=== PATIENT | female | born 1955 | race Caucasian/White ===

== ENCOUNTER 2018-04-08 11:34 | Emergency (ER) | payer MEDICARE, MEDICAID, SELFPAY ==
[2018-04-08 11:36] VITALS: BP 130/98; PULSE 81; RESP 13; TEMP 37.4; O2SAT 98; BMI 31.3
--- NOTE | 2018-04-08 11:46 | RAD_ITS ---
STUDY: X-RAY CHEST REASON FOR EXAM: Female, 62 years old. Syncope, weakness. TECHNIQUE: Single AP portable upright view of the chest. COMPARISON: None. FINDINGS: There is mild elevation of the right diaphragm, etiology uncertain. Borderline increased density in the medial right lung base is likely subsegmental volume loss. There is no demonstrated pleural abnormality. Normal size heart. Normal mediastinum and carlo. Normal visualized pulmonary arteries. Normal visualized aortic arch and descending thoracic aorta. Normal visualized thoracic spine. Normal visualized ribs, clavicles, and shoulders. There is no demonstrated abnormality of the visualized soft tissue structures of the upper abdomen. RAD/Chest 1 View (Portable) IMPRESSION: Subsegmental volume loss in the medial right lung base with elevation of the right diaphragm. Electronically Signed: Pilo Kohli MD at 12:08 EDT , Service support ,
--- NOTE | 2018-04-08 11:47 | EKG12_ITS ---
Test Reason : SYNCOPE Blood Pressure : / mmHG Vent. Rate : 083 BPM Atrial Rate : 083 BPM P-R Int : 128 ms QRS Dur : 088 ms QT Int : 398 ms P-R-T Axes : -19 000 136 degrees QTc Int : 467 ms Normal sinus rhythm ST & T wave abnormality, consider anterolateral ischemia Abnormal ECG Confirmed by KALPESH SMITH, GOLD ([id number]), assignment editor JUAN PABLO SAUNDERS ([id number]) on 04/11/2018 10:33:32 AM Referred By: DAMASO Confirmed By:GOLD POSEY MD
--- NOTE | 2018-04-08 11:50 | ED.DCSUM_ITS ---
- ER Visit Summary Date of Service: 04/08/18 Chief Complaint: Syncope History of Present Illness: The patient is a 62 F who was coming out of the bathroom following urination status post Lasix when she started feeling warm and sweaty. She states her vision got tunneled and then dark and she passed out. A bystander at [facility] where she is currently staying reportedly did CPR. EMS notes patient appears well in transport. Patient is from [facility]. She was transferred here a couple days ago. Apparently the alf she was staying and down there would not take her back following her hospitalization due to issues such as stealing and causing problems. The patient states that her current living situation here in [place] simply will not do. She denies any chest pain or shortness of breath. She reports having had a heart catheterization in the past. Per reports it was September 2016. Physical Examination: Afebrile vital signs are stable Gen: Well-nourished well-developed Head: Normocephalic atraumatic Eyes: Perrl EOMI ENT: TMs clear no rhinorrhea moist mucous membranes Neck: Supple no lymphadenopathy no JVD nontender CVS: Regular rate rhythm no murmurs normal S1-S2 Respiratory: No distress clear to auscultation bilaterally chest nontender Abdomen: Soft nontender nondistended normal bowel sounds no masses Back: Nontender Extremity: Nontender no edema Skin: Normal color no rash Neuro: alert orientated ?3 CN II-XII intact normal strength sensation reflexes gait cerebellar Psych: Normal affect normal mood Test Results: EKG showed a normal sinus rhythm at a rate of 83. CBC CMP liver urinalysis troponin natruretic peptide all essentially negative. Chest x-ray no acute findings. Emergency Department Course and Treatment: Patient had no events on the monitor. She is otherwise at her baseline and feels fine. She will be discharged home follow-up with her new primary care physician. Impression: 1. Syncope This note was generated with [employer] dictation software. It may contain incorrect words, spelling, and punctuation that were not noted in review of the chart prior to signing ED Disposition - Plan for ED Patient: Disposition: Home or Assisted Living Chief Complaint: Syncope Instructions: ED Syncope Vasovagal Referrals: [facility] Doctor,Out of [Primary Care Provider] - Additional Instructions: Please follow-up with your primary care physician
--- NOTE | 2018-04-08 11:50 | ED.RN ---
NO OLD EKG'S IN MUSE
[2018-04-08 12:03] LABS: Absolute Lymphocyte Count 1.82 X10^3/ul (0.83-4.51); Absolute Neutrophil Count 2.5 X10^3/uL (2.0-7.7); Basophil# 0.01 X10^3/uL; Basophil% 0.2 % (0-1); Eosinophil# 0.04 X10^3/uL; Eosinophils% 0.8 % (0-5); Hematocrit 41.3 % (37-47); Hemoglobin 13.6 g/dl (12.0-15.0); Lymphocyte # 1.82 X10^3/ul (4.0); Lymphocyte % 38.2 % (19-41); Mean Corp Hgb Conc 32.9 g/gl (32-36); Mean Corpuscular Hgb 28.1 pg (27.0-32.0); Mean Corpuscular Volume 85.3 fL (81-99); Mean Platelet Vol. 8.7 fl (6.2-12.0); Monocyte# 0.35 X10^3/uL; Monocyte% 7.4 % (0-10); Neutrophil # 2.54 X10^3/uL (2.7-7.7); Neutrophil % 53.4 % (47-70); POSITIVE COUNT NO; POSITIVE DIFFERENTIAL NO; POSITIVE MORPHOLOGY NO; Platelet Count 271 K/mm3 (150-450); RBC Distribution Width CV 14.5 % (11.6-14.6); RBC Distribution Width SD 45.4 fl (35.1-43.9); Red Blood Count 4.84 M/mm3 (4.2-5.4); White Blood Count 4.8 K/mm3 (4.4-11.0)
--- NOTE | 2018-04-08 12:05 | ED.RN ---
Permission to treat received from Jose Tineo [phone] by myself and Sheila Diaz RN.
[2018-04-08 12:17] VITALS: BP 122/74; PULSE 88; RESP 13; O2SAT 98
[2018-04-08 12:20] LABS: Mucous, Urine 0 SEEN /hpf (<or=2+); Red Blood Cells-Urine 0 SEEN /hpf (0-5)
[2018-04-08 12:21] LABS: Color, Urine Yellow (Yellow); Glucose, Dipstick Normal (Normal); Ketone-Dipstick Negative (Negative); Leukocyte Esterase-Dipstick 25 /ul (Negative); Nitrite-Dipstick Negative (Negative); Occult Blood-Urine Negative /ul (Negative); Protein-Dipstick Negative (Negative); Urine Bilirubin Dipstick Negative (Negative); Urine Clarity Sl. Cloudy (Clear); Urine Urobilinogen Normal (Normal)
[2018-04-08 12:26] LABS: AST(SGOT) 18 U/L (15-37); Alanine Aminotransfer ALT/SGPT 35 U/L (13-56); Alkaline Phosphatase 174 U/L (45-117); Anion Gap 11 (5-15); BUN 20 mg/dL (7-18); BUN/Creat Ratio 17.2 RATIO (10-20); Calcium,Total 9.4 mg/dL (8.5-10.1); Chloride 104 mmol/L (98-107); Creatinine, Serum 1.16 mg/dL (0.55-1.02); EST Glomerular Filtration Rate 50 mL/min (>60); Est Glom Filt Rate - Afr Amer 60 mL/min (>60); Estimated Creatinine Clearance 50.74 ml/min; Globulin 4.2 g/dL (2.2-4.2); Glucose 118 mg/dL (74-106); Potassium 3.5 mmol/L (3.5-5.1); Protein, Total 8.2 g/dL (6.4-8.2); Sodium Level 142 mmol/L (136-145)
[2018-04-08 12:32] LABS: BNP,B-Type NATRIURETIC PEPTIDE 8.3 pg/mL (0-100)
[2018-04-08 12:33] LABS: Bacteria 1+ /hpf (None Seen); Squamous Epithelial Cells - UA 0-5 SEEN /hpf (5-10); White Blood Cells 0-5 SEEN /hpf (0-5)
[2018-04-08 13:41] VITALS: BP 141/101; PULSE 87
== END 2018-04-08 13:45 | disposition home or self-care (01) ==
PROVIDERS: Emergency Provider Emergency Medicine
DX: R55 Syncope and collapse (principal); I11.0 Hypertensive heart disease with heart failure; I50.20 Unspecified systolic (congestive) heart failure; Z79.899 Other long term (current) drug therapy
CPT/HCPCS: 71045; 80053; 81001; 83880; 84484; 85025; 93005; 99285; A4216

== ENCOUNTER 2018-08-10 10:31 | Emergency (ER) | payer MEDICARE, MEDICAID, SELFPAY ==
[2018-08-10 10:32] VITALS: BP 178/119; PULSE 74; RESP 15; TEMP 36.9; O2SAT 97; BMI 33.7
--- NOTE | 2018-08-10 11:08 | CT_ITS ---
STUDY: CT BRAIN WITHOUT CONTRAST REASON FOR EXAM: Female, 63 years old. Headache RADIATION DOSAGE (If Supplied By Facility): CTDIvol = ( 44.99 ) mGy, DLP = ( 694.87 ) mGycm TECHNIQUE: Transaxial CT imaging of the brain was performed without administration of intravenous contrast material. Individualized dose optimization techniques were used for this CT. COMPARISON: None. FINDINGS: Normal soft tissue structures. Normal calvarium. There is mild cerebral atrophy with widening of the extra-axial spaces and ventricular dilatation. There are areas of decreased attenuation within the white matter tracts of the supratentorial brain, consistent with microvascular disease changes. Normal basal ganglia and thalami. Normal brainstem. Normal cerebellum. There is no intracranial hemorrhage. There are no findings of an acute ischemic infarction. Normal visualized paranasal sinuses. CT/Brain/Head without Contrast IMPRESSION: Chronic involutional changes of the brain. Electronically Signed: Favian He DO at 13:03 EST Tel , Service support ,
[2018-08-10 11:43] LABS: Absolute Lymphocyte Count 1.59 X10^3/ul (0.83-4.51); Absolute Neutrophil Count 3.9 X10^3/uL (2.0-7.7); Basophil# 0.03 X10^3/uL; Basophil% 0.5 % (0-1); Eosinophil# 0.08 X10^3/uL; Eosinophils% 1.3 % (0-5); Hemoglobin 13.4 g/dl (12.0-15.0); Lymphocyte # 1.59 X10^3/ul (4.0); Lymphocyte % 26.6 % (19-41); Mean Corp Hgb Conc 34.4 g/gl (32-36); Mean Corpuscular Hgb 29.5 pg (27.0-32.0); Mean Corpuscular Volume 85.7 fL (81-99); Mean Platelet Vol. 10.5 fl (6.2-12.0); Monocyte# 0.34 X10^3/uL; Monocyte% 5.7 % (0-10); Neutrophil # 3.91 X10^3/uL (2.7-7.7); Neutrophil % 65.6 % (47-70); POSITIVE COUNT NO; POSITIVE DIFFERENTIAL NO; POSITIVE MORPHOLOGY NO; Platelet Count 152 K/mm3 (150-450); RBC Distribution Width SD 40.4 fl (35.1-43.9); Red Blood Count 4.55 M/mm3 (4.2-5.4)
[2018-08-10 11:46] LABS: AST(SGOT) 20 U/L (15-37); Alanine Aminotransfer ALT/SGPT 18 U/L (13-56); Albumin, Serum 3.8 g/dL (3.2-5.0); Alkaline Phosphatase 141 U/L (45-117); Anion Gap 8 (5-15); BUN 13 mg/dL (7-18); BUN/Creat Ratio 12.6 RATIO (10-20); Calcium,Total 8.7 mg/dL (8.5-10.1); Chloride 105 mmol/L (98-107); Creatinine, Serum 1.03 mg/dL (0.55-1.02); EST Glomerular Filtration Rate 57 mL/min (>60); Est Glom Filt Rate - Afr Amer 69 mL/min (>60); Estimated Creatinine Clearance 60.78 ml/min; Globulin 3.7 g/dL (2.2-4.2); Glucose 106 mg/dL (74-106); Lipase 118 U/L (73-393); Potassium 3.6 mmol/L (3.5-5.1); Protein, Total 7.5 g/dL (6.4-8.2); Sodium Level 139 mmol/L (136-145)
[2018-08-10] MEDS: Metoclopramide 10 MG/2 ML Vial IV (12:09)
[2018-08-10] MEDS: 0.9% Normal Saline 1,000 ML 1000 ML IV (12:09)
[2018-08-10] MEDS: DiphenhydrAMINE 50 MG/ML Syringe 25 MG IV (12:09)
[2018-08-10 12:10] LABS: Color, Urine Straw (Yellow); Glucose, Dipstick Normal (Normal); Ketone-Dipstick Negative (Negative); Leukocyte Esterase-Dipstick Negative /ul (Negative); Nitrite-Dipstick Negative (Negative); Occult Blood-Urine Negative /ul (Negative); Protein-Dipstick Negative (Negative); Urine Bilirubin Dipstick Negative (Negative); Urine Clarity Clear (Clear); Urine Urobilinogen Normal (Normal)
[2018-08-10 12:41] VITALS: PULSE 66; RESP 18; O2SAT 96
[2018-08-10 14:21] VITALS: BP 149/68; PULSE 134; RESP 17; O2SAT 96
--- NOTE | 2018-08-10 14:24 | ED.VISSUMM ---
- ER Visit Summary Date of Service: 08/10/18 Chief Complaint: Abdominal pain and headache History of Present Illness: The patient is a 63 F who presents with abdominal pain and headache that has been getting worse since yesterday. Patient describes her abdominal pain is cramping. Patient states pain is worse over the lower abdomen. Patient admits to some nausea but denies any vomiting. Patient admits to some diarrhea. Patient denies any urinary complaints. Patient also admits to some dizziness. Patient admits to fevers and chills but did not take her temperature. Physical Examination: Vital signs are stable. Patient is afebrile. Patient is in no acute distress. Oral mucosa is pink and moist. Neck is supple. Trachea is midline. There is no JVD noted. Heart was regular rate and rhythm. Lungs are clear and equal bilateral. Abdomen is soft. Bowel sounds are normal. There is mild diffuse tenderness. There is no rebound or guarding noted. Skin is warm dry. Cranial nerves II through XII are intact. There are no focal motor or sensory deficits noted. The remaining physical exam is within normal limits. Test Results: CT scan of the brain was obtained and was normal. CBC, comprehensive metabolic profile, lipase, and urinalysis were obtained and were all normal. Emergency Department Course and Treatment: Patient was given IV fluids, Reglan, Benadryl, and morphine. Patient was instructed to follow-up with her primary care physician in 5-7 days. Patient understood and was agreeable with the plan. All questions were answered. Disposition: Discharge home Impression: Abdominal pain uncertain etiology This note was generated with [employer] dictation software. It may contain incorrect words, spelling, and punctuation that were not noted in review of the chart prior to signing ED Disposition - Plan for ED Patient: Disposition: Home or Assisted Living Diagnosis: Abdominal pain in female Instructions: ED Abdominal Pain Unkn Cause Referrals: [facility] [address] Doctor,Out of [Primary Care Provider] -
--- NOTE | 2018-08-10 14:28 | ED.DCSUM_ITS ---
- ER Visit Summary Date of Service: 08/10/18 Chief Complaint: Abdominal pain and headache History of Present Illness: The patient is a 63 F who presents with abdominal pain and headache that has been getting worse since yesterday. Patient describes her abdominal pain is cramping. Patient states pain is worse over the lower abdomen. Patient admits to some nausea but denies any vomiting. Patient admits to some diarrhea. Patient denies any urinary complaints. Patient also admits to some dizziness. Patient admits to fevers and chills but did not take her temperature. Physical Examination: Vital signs are stable. Patient is afebrile. Patient is in no acute distress. Oral mucosa is pink and moist. Neck is supple. Trachea is midline. There is no JVD noted. Heart was regular rate and rhythm. Lungs are clear and equal bilateral. Abdomen is soft. Bowel sounds are normal. There is mild diffuse tenderness. There is no rebound or guarding noted. Skin is warm dry. Cranial nerves II through XII are intact. There are no focal motor or sensory deficits noted. The remaining physical exam is within normal limits. Test Results: CT scan of the brain was obtained and was normal. CBC, comprehensive metabolic profile, lipase, and urinalysis were obtained and were all normal. Emergency Department Course and Treatment: Patient was given IV fluids, Reglan, Benadryl, and morphine. Patient was instructed to follow-up with her primary care physician in 5-7 days. Patient understood and was agreeable with the plan. All questions were answered. Disposition: Discharge home Impression: Abdominal pain uncertain etiology This note was generated with [employer] dictation software. It may contain incorrect words, spelling, and punctuation that were not noted in review of the chart prior to signing ED Disposition - Plan for ED Patient: Disposition: Home or Assisted Living Diagnosis: Abdominal pain in female Instructions: ED Abdominal Pain Unkn Cause Referrals: [facility] Doctor,Out of [Primary Care Provider] -
[2018-08-10] MEDS: Morphine 2 MG/ML Syringe IV (14:44)
[2018-08-10] MEDS: Ondansetron 4 MG/2 ML Vial IV (14:53)
== END 2018-08-10 15:02 | disposition home or self-care (01) ==
PROVIDERS: Emergency Provider Emergency Medicine
DX: R10.32 Left lower quadrant pain (principal); R10.31 Right lower quadrant pain; R51 Headache; I10 Essential (primary) hypertension
CPT/HCPCS: 70450; 80053; 81002; 83690; 85025; 96361; 96374; 96375; 99285; A4216; J2405

== ENCOUNTER 2018-09-18 16:56 | Emergency (ER) | payer MEDICARE, MEDICAID, SELFPAY ==
[2018-09-18 16:58] VITALS: BP 115/83; PULSE 86; RESP 20; TEMP 36.7; O2SAT 96; BMI 32.2
[2018-09-18 17:18] VITALS: O2SAT 97
--- NOTE | 2018-09-18 17:19 | ED.VISSUMM ---
- ER Visit Summary Date of Service: 09/18/18 Chief Complaint: Cough History of Present Illness: The patient is a 63 F history of hypertension and high cholesterol. Patient states that she has had a 2-day history of cough. With a runny nose that is clear. No hemoptysis. No shortness of breath. No vomiting or diarrhea. No fever. Physical Examination: All signs are stable afebrile. Pulse ox 96% on room air. No hypoxia. H EENT exam unremarkable. Moist weeks membranes. TMs unremarkable. Some wax left canal. Neck nontender no lymphadenopathy. Lungs dry cough. No rales, rhonchi or wheezing. Equal symmetrical. Heart regular rate and rhythm rate about 85 no murmur. Chest wall nontender. Abdomen soft nontender. Normal bowel sounds no peritoneal signs. Patient moving all 4 extremities. Neurovascular intact. Calves nontender without edema or cords. Neurologically she is awake alert with no focal motor deficits. Back exam nontender. Skin unremarkable. Test Results: Chest x-ray 2 views shows no acute abnormality. Read by myself. Normal cardiac silhouette. No infiltrate. Emergency Department Course and Treatment: Repeat exam doing well at 1737. Discharged home. She and I discussed her chest x-ray results. Treatment Plan: Plenty of fluids and rest. Follow-up if not improving with her primary care physician at this time she does not need an antibiotic. Disposition: Discharge Impression: Viral bronchitis This note was generated with [employer] dictation software. It may contain incorrect words, spelling, and punctuation that were not noted in review of the chart prior to signing ED Disposition - Plan for ED Patient: Referrals: Sarabjit Troncoso MD [Primary Care Provider] -
--- NOTE | 2018-09-18 17:22 | ED.DCSUM_ITS ---
- ER Visit Summary Date of Service: 09/18/18 Chief Complaint: Cough History of Present Illness: The patient is a 63 F history of hypertension and high cholesterol. Patient states that she has had a 2-day history of cough. With a runny nose that is clear. No hemoptysis. No shortness of breath. No vomiting or diarrhea. No fever. Physical Examination: All signs are stable afebrile. Pulse ox 96% on room air. No hypoxia. H EENT exam unremarkable. Moist weeks membranes. TMs un remarkable. Some wax left canal. Neck nontender no lymphadenopathy. Lungs dry cough. No rales, rhonchi or wheezing. Equal symmetrical. Heart regular rate and rhythm rate about 85 no murmur. Chest wall nontender. Abdomen soft nontender. Normal bowel sounds no peritoneal signs. Patient moving all 4 extremities. Neurovascular intact. Calves nontender without edema or cords. Neurologically she is awake alert with no focal motor deficits. Back exam nontender. Skin unremarkable. Test Results: Chest x-ray 2 views shows no acute abnormality. Read by myself. Normal cardiac silhouette. No infiltrate. Emergency Department Course and Treatment: Repeat exam doing well at 1737. Discharged home. She and I discussed her chest x-ray results. Treatment Plan: Plenty of fluids and rest. Follow-up if not improving with her primary care physician at this time she does not need an antibiotic. Disposition: Discharge Impression: Viral bronchitis This note was generated with [employer] dictation software. It may contain incorrect words, spelling, and punctuation that were not noted in review of the chart prior to signing ED Disposition - Plan for ED Patient: Referrals: Sarabjit Troncoso MD [Primary Care Provider] -
--- NOTE | 2018-09-18 17:25 | RAD_ITS ---
STUDY: X-RAY CHEST REASON FOR EXAM: Female, 63 years old. Cough TECHNIQUE: PA and lateral chest COMPARISON: 04/08/2018 FINDINGS: There are COPD changes. There is a new 7 mm nodular density overlying the left anterior second rib.. Normal size heart. Normal mediastinum and carlo. Normal visualized pulmonary arteries. Normal visualized aortic arch and descending thoracic aorta. Normal visualized thoracic spine. Normal visualized ribs, clavicles, and shoulders. There is no demonstrated abnormality of the visualized soft tissue structures of the upper abdomen. RAD/Chest PA and Lateral IMPRESSION: COPD changes New 7 mm left upper lobe faint nodular density which could represent a new pulmonary nodule, this could represent summation artifact or scar. Rib lesion also cannot be excluded. CT chest follow-up is recommended. Electronically Signed: Clement Garcia, at 18:44 EDT Tel , Service support ,
--- NOTE | 2018-09-18 17:39 | ED.DEP ---
ED Disposition - Plan for ED Patient: Disposition: Home or Assisted Living Instructions: ED Upper Resp Infec No Abx Tx Referrals: Sarabjit Troncoso MD [Primary Care Provider] - 1 Week if not improving Additional Instructions: You have a viral respiratory infection. Currently no antibiotics. This should progressively get better if not in a week follow-up with your doctor.
== END 2018-09-18 17:54 | disposition home or self-care (01) ==
PROVIDERS: Emergency Provider Emergency Medicine; Family Provider Family Medicine; PCP Family Medicine
DX: J20.8 Acute bronchitis due to other specified organisms (principal); I10 Essential (primary) hypertension; E78.00 Pure hypercholesterolemia, unspecified; Z79.899 Other long term (current) drug therapy
CPT/HCPCS: 71046; 99282

== ENCOUNTER 2019-01-10 04:12 | Emergency (ER) | payer MEDICARE, MEDICAID, SELFPAY ==
[2019-01-10 04:14] VITALS: BP 191/118; PULSE 95; RESP 18; TEMP 37.6; O2SAT 98; BMI 31.1
--- NOTE | 2019-01-10 04:28 | RAD_ITS ---
STUDY: X-RAY CHEST REASON FOR EXAM: Female, 63 years old. Cough TECHNIQUE: Frontal and lateral views of the chest. COMPARISON: None. FINDINGS: There is subsegmental atelectasis in the left lung base. There is no demonstrated pleural abnormality. Normal size heart. Normal mediastinum and carlo. Normal visualized pulmonary arteries. Normal visualized aortic arch and descending thoracic aorta. Normal visualized thoracic spine. There is degenerative osteoarthritis of the bilateral shoulders. There is no demonstrated abnormality of the visualized soft tissue structures of the upper abdomen. RAD/Chest PA and Lateral IMPRESSION: Degenerative changes, as described above. No demonstrated acute cardiopulmonary process. Electronically Signed: Charo Shen, at 5:58 EDT Tel , Service support ,
--- NOTE | 2019-01-10 04:28 | EKG12_ITS ---
Test Reason : WEAKNESS Blood Pressure : / mmHG Vent. Rate : 096 BPM Atrial Rate : 096 BPM P-R Int : 130 ms QRS Dur : 094 ms QT Int : 392 ms P-R-T Axes : 074 -03 115 degrees QTc Int : 495 ms Normal sinus rhythm ST & T wave abnormality, consider inferior ischemia ST & T wave abnormality, consider anterolateral ischemia Prolonged QT Abnormal ECG Confirmed by CAN SMITH, EDUARDO ([id number]), film or videotape editor SHABBIR NGUYEN ([id number]) on 01/13/2019 12:37:05 PM Referred By: RAMÍREZ Confirmed By:EDUARDO NORTH MD
--- NOTE | 2019-01-10 04:28 | CT_ITS ---
STUDY: CT BRAIN WITHOUT CONTRAST REASON FOR EXAM: Female, 63 years old. NAUSEA, WEAKNESS X 3 DAYS, RADIATION DOSAGE (If Supplied By Facility): CTDIvol = ( 44.99 ) mGy, DLP = ( 745.49 ) mGycm TECHNIQUE: Transaxial CT imaging of the brain was performed without administration of intravenous contrast material. Individualized dose optimization techniques were used for this CT. COMPARISON: No relevant priors. FINDINGS: Normal soft tissue structures. Normal calvarium. Normal size ventricles and extra-axial spaces for the patient's age. There are areas of decreased attenuation within the white matter tracts of the supratentorial brain, consistent with microvascular disease changes. Normal basal ganglia and thalami. Normal brainstem. Normal cerebellum. There is no intracranial hemorrhage. There are no findings of an acute ischemic infarction. Normal visualized paranasal sinuses. CT/Brain/Head without Contrast IMPRESSION: Chronic involutional changes of the brain. Electronically Signed: Charo Shen, at 6:02 EDT Tel , Service support ,
--- NOTE | 2019-01-10 04:29 | CT_ITS ---
STUDY: CT ABDOMEN AND PELVIS WITHOUT CONTRAST REASON FOR EXAM: Female, 63 years old. Nausea RADIATION DOSAGE (If Supplied By Facility): CTDIvol = ( 6.72 ) mGy, DLP = ( 313.81 ) mGycm TECHNIQUE: Transaxial images were obtained from the dome of the diaphragm to the symphysis pubis without oral contrast, and without intravenous contrast. Sagittal and coronal images were reconstructed. Individualized dose optimization techniques were used for this CT. COMPARISON: None. FINDINGS: The visualized lung bases are unremarkable. The visualized portions of the heart are within normal limits. Normal liver. Normal gallbladder and extrahepatic biliary system. Normal spleen. Normal pancreas. Normal bilateral adrenal glands. Normal right kidney. Normal left kidney. Normal visualized stomach. Normal small intestine. Normal colon. There is non-visualization of the appendix. Normal abdominal aorta. Normal inferior vena cava. Normal retroperitoneum. Normal urinary bladder. Normal abdominal wall. There are diffuse degenerative changes of the visualized lumbar spine more prominent at L3-4. CT/Abdomen/Pelvis without Cont IMPRESSION: No acute abnormality of the abdomen and pelvis. Electronically Signed: Charo Shen, at 6:19 EDT Tel , Service support ,
--- NOTE | 2019-01-10 04:30 | ED.VISSUMM ---
- ER Visit Summary Date of Service: 01/10/19 Chief Complaint: Multiple complaints History of Present Illness: The patient is a 63 F who presents with multiple complaints. She has not felt well for 3 days. She complains of nausea vomiting diarrhea and right flank pain. She also complains of headache and feeling dizzy and lightheaded. She denies chest pain or shortness of breath. No fevers. No cough. He is unable to really characterize the flank pain. She states it just hurts. She rates this is 8 out of 10. She reports about 4 episodes of nonbloody nonbilious emesis over the last 3 days as well as mild diarrhea. Physical Examination: Blood pressure 191/118 temperature 99.6 vitals otherwise normal No distress resting comfortably Moist mucous membranes Heart regular rate and rhythm Lungs are clear Abdomen soft she has no anterior abdominal tenderness she does have tenderness of the right flank there is no guarding there is no rebound surgical scars are noted on the abdomen Alert No focal or lateralizing neurological deficits normal strength normal sensation Normal affect Test Results: EKG shows normal sinus rhythm at a rate of 96 with lateral T wave inversions, unchanged from prior. Chest x-ray shows no acute process. CT of the abdomen and pelvis shows no acute abnormality. CT of the head shows chronic changes only. Labs are notable for potassium of 2.7. BUN normal. Urinalysis is contaminated but suggestive of possible infection with 500 leukocyte esterase and 10-25 WBCs. This was sent for culture. Troponin is negative. Magnesium is normal. Emergency Department Course and Treatment: Patient was treated with morphine and Zofran for her pain. She is resting comfortably on reevaluation. She was given IV Rocephin for UTI. Her potassium was replaced orally and IV. At this time her symptoms are well controlled. She is tolerating p.o. and was drinking Sprite on my reevaluation. Her blood pressure has significantly improved without any treatment. At this point regarding her UTI she does not meet sirs criteria, she does not appear septic. I believe she will be treated as an outpatient. In regards to her hypokalemia she is only had a few episodes of diarrhea this is not severe ongoing. She has not had any while here. She is tolerating p.o. and has no EKG changes. Once this is replaced I believe she can be discharged. Patient is in agreement with this plan. Patient will be signed out the oncoming physician to follow-up on the repeat potassium after replacement. Treatment Plan: [] Disposition: Discharge pending potassium replacement Impression: UTI Hypokalemia Uncontrolled hypertension This note was generated with [employer] dictation software. It may contain incorrect words, spelling, and punctuation that were not noted in review of the chart prior to signing ED Disposition - Plan for ED Patient: Referrals: Sarabjit Troncoso MD [Primary Care Provider] -
[2019-01-10 04:35] LABS: Absolute Lymphocyte Count 0.78 X10^3/uL (0.83-4.51); Absolute Neutrophil Count 7.8 X10^3/uL (2.0-7.7); Basophil# 0.03 X10^3/uL; Basophil% 0.3 % (0-1); Eosinophil# 0.05 X10^3/uL; Eosinophils% 0.5 % (0-5); Hematocrit 39.7 % (37-47); Hemoglobin 14.6 g/dL (12.0-15.0); Lymphocyte # 0.78 X10^3/ul (4.0); Lymphocyte % 8.5 % (19-41); Mean Corp Hgb Conc 36.8 g/dL (32-36); Mean Corpuscular Hgb 31.3 pg (27.0-32.0); Mean Corpuscular Volume 85.2 fL (81-99); Mean Platelet Vol. 9.4 fl (6.2-12.0); Monocyte# 0.53 X10^3/uL; Monocyte% 5.8 % (0-10); NRBC Flagged by Analyzer 0 % (0-5); Neutrophil # 7.77 X10^3/uL (2.7-7.7); Neutrophil % 84.5 % (47-70); Platelet Count 195 K/mm3 (150-450); RBC Distribution Width CV 12.3 % (11.6-14.6); Red Blood Count 4.66 M/mm3 (4.2-5.4); White Blood Count 9.2 K/mm3 (4.4-11.0)
[2019-01-10] MEDS: Ondansetron 4 MG/2 ML Vial IV (04:35)
[2019-01-10] MEDS: Morphine 4 MG/ML Syringe IV (04:35)
[2019-01-10 04:42] LABS: Bacteria 0 SEEN /hpf (None Seen); Mucous, Urine 0 SEEN /hpf (<or=2+)
[2019-01-10 05:05] LABS: Color, Urine Yellow (Yellow); Glucose, Dipstick Normal (Normal); Ketone-Dipstick 5 mg/dl (Negative); Leukocyte Esterase-Dipstick 500 /ul (Negative); Nitrite-Dipstick Negative (Negative); Occult Blood-Urine 10 /ul (Negative); Protein-Dipstick 15 mg/dl (Negative); Specific Gravity, Urine 1.015 (1.002-1.030); Urine Clarity Clear (Clear); Urine Urobilinogen 4 mg/dl (Normal); Urine pH 6.5 (5.0 - 8.0)
[2019-01-10 05:07] LABS: Urine Bilirubin Dipstick 1 mg/dL (Negative)
[2019-01-10 05:14] LABS: Red Blood Cells-Urine 0-5 SEEN /hpf (0-5); Squamous Epithelial Cells - UA 25-50 SEEN /hpf (5-10); White Blood Cells 10-25 SEEN /hpf (0-5)
[2019-01-10 05:15] LABS: Transitional Epithelial - Ur 0-5 SEEN /hpf (0-5)
[2019-01-10 05:20] LABS: ALB/GLOB Ratio 1.2 RATIO (0.9-2.4); AST(SGOT) 13 U/L (15-37); Alanine Aminotransfer ALT/SGPT 18 U/L (13-56); Albumin, Serum 4.1 g/dL (3.2-5.0); Alkaline Phosphatase 127 U/L (45-117); Anion Gap 9 (5-15); BUN 12 mg/dL (7-18); BUN/Creat Ratio 11.1 RATIO (10-20); Calcium,Total 9.4 mg/dL (8.5-10.1); Chloride 105 mmol/L (98-107); Creatinine, Serum 1.08 mg/dL (0.55-1.02); EST Glomerular Filtration Rate 54 mL/min (>60); Est Glom Filt Rate - Afr Amer 65 mL/min (>60); Estimated Creatinine Clearance 53.62 ml/min; Globulin 3.5 g/dL (2.2-4.2); Glucose 132 mg/dL (74-106); Lipase 148 U/L (73-393); Potassium 2.7 mmol/L (3.5-5.1); Protein, Total 7.6 g/dL (6.4-8.2); Sodium Level 143 mmol/L (136-145)
--- NOTE | 2019-01-10 05:25 | ED.RN ---
lab called with critical lab results. potassium level 2.7. Dr. Miranda made aware no new orders at this time
[2019-01-10] MEDS: Ceftriaxone 1 GM/50 ML BAG IV (05:54)
[2019-01-10 05:59] LABS: Magnesium 2.2 mg/dL (1.6-2.6)
[2019-01-10 06:13] VITALS: BP 150/94; PULSE 88; RESP 14; O2SAT 96
[2019-01-10] MEDS: Potassium Chloride 10mEq/100mL 10 MEQ/100 ML IV.SOLN. 100 MEQ IV BOLUS ×2 (06:26→08:16)
--- NOTE | 2019-01-10 06:26 | ED.DEP ---
ED Disposition - Plan for ED Patient: Instructions: Hypokalemia, HYPERTENSION, Established, Out of Control, Understanding Urinary Tract Infections (UTIs) Prescriptions: Cephalexin [Keflex] 500 mg PO Q12 #14 cap Prescription Printed Referrals: Sarabjit Troncoso MD [Primary Care Provider] -
--- NOTE | 2019-01-10 07:21 | ED.DEP ---
ED Disposition - Plan for ED Patient: Instructions: Understanding Urinary Tract Infections (UTIs), Hypokalemia, HYPERTENSION, Established, Out of Control Prescriptions: Cephalexin [Keflex] 500 mg PO Q12 #14 cap Prescription Printed Ondansetron [Zofran Odt] 4 mg PO Q8H PRN PRN #7 tab PRN Reason: as needed for nausea Prescription Printed Referrals: Sarabjit Troncoso MD [Primary Care Provider] -
[2019-01-10 08:00] VITALS: BP 157/105; PULSE 87; RESP 14; O2SAT 98
[2019-01-10] MEDS: Acetaminophen 500 MG Tablet 1000 MG PO (08:21)
[2019-01-10 10:26] VITALS: BP 147/86; PULSE 90; RESP 13; O2SAT 96
--- NOTE | 2019-01-10 10:31 | ED.RN ---
THIS RN IN TO ASSESS IV INFUSION STATUS, IV PUMP TURNED OFF. ALL OTHER ED STAFF DENY SHUTTING DOWN PUMP. PT STATES SHE THINKS SOME WAVY HAIRED LADY DID IT. PT HAD VOICED RELUCTANCE TO RETURN TO [place], REQUESTED TO STAY FOR LUNCH. EDUCATED PT ON DANGERS OF HER HANDING IV PUMP. ENGLE PAD ON PUMP LOCKED.
[2019-01-10 12:14] VITALS: BP 147/87; PULSE 78; RESP 18; O2SAT 97
--- NOTE | 2019-01-10 12:22 | ED.RN ---
REPEAT POTASSIUM HELD PER MD, 2 BAGS OF POTASSIUM GIVEN PER MD.
--- NOTE | 2019-01-10 13:33 | CASEMGMT ---
Social Work Patient left emergency department and then came back in requesting for scripts to be faxed to [facility]. This social media marketing analyst able to assist, scripts faxed. Rene SANDHU, KIERA
== END 2019-01-10 12:17 | disposition home or self-care (01) ==
PROVIDERS: Emergency Medicine; Emergency Provider Emergency Medicine; Family Provider Family Medicine; PCP Family Medicine
DX: N39.0 Urinary tract infection, site not specified (principal); E87.6 Hypokalemia; I10 Essential (primary) hypertension; R19.7 Diarrhea, unspecified; E78.00 Pure hypercholesterolemia, unspecified; Z79.899 Other long term (current) drug therapy
CPT/HCPCS: 70450; 71046; 74176; 80053; 81001; 83690; 83735; 84484; 85025; 87086; 87088; 93005; 96365; 96366; 96367; 96374; 96375; 99285; J7030; A4216; J2405

== ENCOUNTER 2019-02-05 20:24 | Emergency (ER) | payer MEDICARE, MEDICAID, SELFPAY ==
[2019-02-05 20:25] VITALS: BP 138/101; PULSE 84; RESP 18; TEMP 35.8; O2SAT 97; BMI 29.9
[2019-02-05 20:46] VITALS: RESP 16
[2019-02-05 21:08] LABS: Absolute Lymphocyte Count 2.02 X10^3/uL (0.83-4.51); Absolute Neutrophil Count 2.8 X10^3/uL (2.0-7.7); Basophil# 0.02 X10^3/uL; Basophil% 0.4 % (0-1); Eosinophil# 0.18 X10^3/uL; Eosinophils% 3.3 % (0-5); Hematocrit 36.2 % (37-47); Hemoglobin 12.8 g/dL (12.0-15.0); Lymphocyte # 2.02 X10^3/ul (4.0); Lymphocyte % 37.2 % (19-41); Mean Corp Hgb Conc 35.4 g/dL (32-36); Mean Corpuscular Hgb 31.1 pg (27.0-32.0); Mean Corpuscular Volume 87.9 fL (81-99); Mean Platelet Vol. 9.4 fl (6.2-12.0); Monocyte# 0.39 X10^3/uL; Monocyte% 7.2 % (0-10); NRBC Flagged by Analyzer 0 % (0-5); Neutrophil % 51.5 % (47-70); Platelet Count 195 K/mm3 (150-450); RBC Distribution Width CV 13.2 % (11.6-14.6); RBC Distribution Width SD 42.5 fl (35.1-43.9); Red Blood Count 4.12 M/mm3 (4.2-5.4); White Blood Count 5.4 K/mm3 (4.4-11.0)
[2019-02-05 21:18] LABS: Anion Gap 6 (5-15); BUN 12 mg/dL (7-18); BUN/Creat Ratio 13.9 RATIO (10-20); Calcium,Total 9.4 mg/dL (8.5-10.1); Chloride 104 mmol/L (98-107); Creatinine, Serum 0.86 mg/dL (0.55-1.02); EST Glomerular Filtration Rate 70 mL/min (>60); Est Glom Filt Rate - Afr Amer 85 mL/min (>60); Estimated Creatinine Clearance 64.76 ml/min; Glucose 113 mg/dL (74-106); Potassium 2.9 mmol/L (3.5-5.1); Sodium Level 140 mmol/L (136-145)
[2019-02-05 21:21] LABS: Amphetamine Urine VISTA NEGATIVE (<1000 ng/mL); Barbiturate Urine VISTA NEGATIVE (< 200 ng/mL); Benzodiazepine Urine VISTA NEGATIVE (< 200 ng/mL); Cocaine Urine VISTA NEGATIVE (< 300 ng/mL); Ecstacy Urine VISTA POSITIVE (< 500 ng/mL); Methadone Urine VISTA NEGATIVE (< 300 ng/mL); PCP Urine VISTA NEGATIVE (< 25 ng/mL); THC Urine VISTA NEGATIVE (< 50 ng/mL); Vista UDS pH Range 6
[2019-02-05 21:24] VITALS: BP 160/105; PULSE 93; RESP 16; O2SAT 99
[2019-02-05 21:33] LABS: Alcohol, Blood (Medical)-Serum < 3.0 mg/dL
--- NOTE | 2019-02-05 21:35 | CM.ED ---
SOCIAL WORK PRINCESS WITH CRISIS UPDATED ON CONSULT. PER PRINCESS, IS ON HER WAY TO ASSESS ANOTHER PATIENT. WILL BE IN LATER THIS EVENING. STAFF UPDATED. JANNA RIOS, CAKE WINDER, EXPRESSIVE THERAPIST.
--- NOTE | 2019-02-05 21:36 | ED.VISSUMM ---
- ER Visit Summary Date of Service: 02/05/19 Chief Complaint: Suicidal ideation History of Present Illness: The patient is a 63 F presenting with suicidal ideation. Patient states that she just wants to . She has had thoughts of suicide but has no specific plan. She currently lives in a residential. She states that the residential staff has been on her case. She has been depressed over losing her and her daughter. Her 7 years ago, her daughter 3 years ago. She then lost her apartment and is now in a residential. Physical Examination: Vitals are stable. Patient is afebrile. Alert no acute distress. HEENT exam is unremarkable. Neck is supple. Lungs are clear and equal bilaterally. Heart is regular rate and rhythm. Abdomen is soft nontender nondistended. Extremities are unremarkable. Skin is warm and dry. No focal neurologic deficit. Depressed affect Remainder of exam is unremarkable. Emergency Department Course and Treatment: CBC, chemistries unremarkable other than potassium 2.9. She was given potassium oral replacement. Tox positive for methamphetamine, alcohol negative. Discussed with the counseling center for evaluation. Disposition: Per counseling center Impression: Suicidal ideation This note was generated with [employer] dictation software. It may contain incorrect words, spelling, and punctuation that were not noted in review of the chart prior to signing ED Disposition - Plan for ED Patient: Referrals: Sarabjit Troncoso MD [Primary Care Provider] -
[2019-02-05 22:00] VITALS: RESP 16
[2019-02-05 23:00] VITALS: RESP 16
[2019-02-06] VITALS (16 sets, daily range): BP systolic 138–165; BP diastolic 77–107; PULSE 78–94; RESP 14–20; TEMP 36.8; O2SAT 95–98
--- NOTE | 2019-02-06 02:14 | ED.RN ---
PRINCESS FROM [facility] STATED SHE WILL BE HERE TO SEE THIS PT IN AN HOUR.
--- NOTE | 2019-02-06 02:53 | ED.RN ---
PRINCESS FROM [facility] IS HERE TO EVALUATE THIS PT.
[2019-02-06 06:03] LABS: Potassium 3.5 mmol/L (3.5-5.1)
--- NOTE | 2019-02-06 06:37 | ED.RN ---
called pharmacy and spoke with Braulio to request home meds.
--- NOTE | 2019-02-06 07:59 | ED.RN ---
received permission to treat from timothy day. legal guardian
[2019-02-06] MEDS: Pantoprazole Sodium 40 MG Tablet PO (08:01)
[2019-02-06] MEDS: Citalopram 40 MG TABLET PO (08:01)
[2019-02-06] MEDS: Furosemide 20 MG Tablet PO (08:01)
[2019-02-06] MEDS: Carvedilol 6.25 MG Tablet PO ×2 (08:01→21:55)
[2019-02-06] MEDS: Losartan Potassium 50 MG Tablet PO (08:01)
[2019-02-06] MEDS: Levothyroxine 25 MCG TABLET PO (08:01)
[2019-02-06] MEDS: Loratadine 10 MG Tablet PO (08:01)
--- NOTE | 2019-02-06 08:18 | ED.RN ---
ERNESTO FROM [facility] CALLED AND STATES THAT PT IS DECLINED AT THEIR FACILITYCRISES TO BE CONTACTED.
--- NOTE | 2019-02-06 08:22 | ED.RN ---
GLORIA WITH [facility] AWARE PATIENT BEING DENIED AT [facility]. WILL CALL BACK AFTER MEETING THIS MORNING.
--- NOTE | 2019-02-06 09:55 | ED.RN ---
PT CALM AND COOPERATIVE
--- NOTE | 2019-02-06 14:08 | ED.RN ---
[facility] CALLED, WAITING TO HEAR BACK FROM ACCEPTING FACILITY.
--- NOTE | 2019-02-06 17:51 | ED.RN ---
CALLED REPORT TO LEANNE AT [facility] AND LEFT MESSAGE FOR TAN THE PT'S GUARDIAN.
[2019-02-06] MEDS: Amitriptyline 25 MG Tablet 50 MG PO (21:54)
[2019-02-06] MEDS: Atorvastatin Calcium 10 MG Tablet PO (21:55)
[2019-02-06] MEDS: traMADol 50 MG Tablet 100 MG PO (22:10)
[2019-02-06] MEDS: traZODone 100 MG Tablet PO (22:15)
== END 2019-02-06 23:07 ==
PROVIDERS: Emergency Medicine; Emergency Provider Emergency Medicine; Family Provider Family Medicine; PCP Family Medicine
DX: R45.851 Suicidal ideations (principal); F32.9 Major depressive disorder, single episode, unspecified; F41.9 Anxiety disorder, unspecified; E87.6 Hypokalemia; I10 Essential (primary) hypertension; K21.9 Gastro-esophageal reflux disease without esophagitis; Z79.899 Other long term (current) drug therapy
CPT/HCPCS: 36415; 80048; 80307; 80320; 84132; 85025; 99284; G0480

== ENCOUNTER → 2019-08-26 13:37 | Outpatient (CLI) | payer MEDICARE, MEDICAID, SELFPAY ==
[2019-08-05 13:34] VITALS: BMI 31.1
--- NOTE | 2019-08-26 13:38 | ECHOD_ITS ---
Reason For Study: Dyspnea/SOB Procedure This was a 2D Doppler, Color Flow transthoracic echocardiogram. Exam performed in department. Left Ventricle Mildly dilated left ventricle. The estimated ejection fraction is 45-50 %. Stage 1 diastolic dysfunction. There is mild to moderate global hypokinesis of the left ventricle. Right Ventricle Normal size and thickness. A moderator band is seen in the right ventricle. Normal systolic function. Atria Normal left atrium. Normal right atrium. Normal atrial septum. Mitral Valve The mitral valve is structurally normal. No prolapse or stenosis seen. Mild (1+) mitral valve insufficiency. Tricuspid Valve Normal tricuspid valve. Unable to estimate RV systolic pressure due to insufficient tricuspid regurgitant envelope. Trivial tricuspid valve insufficiency. Aortic Valve Normal aortic valve. Trisinus/trileaflet aortic valve. Pulmonic Valve Normal pulmonic valve. Great Vessels Normal aortic root. Normal arch. Normal inferior vena cava. Inferior vena cava collapse with sniff. Pericardium/Pleural No pericardial effusion. MMode/2D Measurements & Calculations LVIDd: 4.4 cm IVSd: 1.1 cm Ao root diam: 3.3 cm LVIDs: 2.6 cm LVPWd: 0.73 cm LA dimension: 3.7 cm RVDd: 3.0 cm FS: 41.1 % LAV(MOD-bp): 43.2 ml LA A4 area: 14.8 cm2 RA A4 area: 8.9 cm2 LAV(MOD-bp) Indexed: 27.6 ml/m2 LAV(MOD-sp2): 44.8 ml LAV(MOD-sp4): 37.5 ml Time Measurements MV dec time: 0.22 sec Doppler Measurements & Calculations MV E max nazario: 71.2 cm/sec Lat Peak E' Nazario: 7.1 cm/sec Med Peak E' Nazario: 5.5 cm/sec MV A max nazario: 119.7 cm/sec E/E' lat: 10.0 E/E' med: 13.0 MV E/A: 0.59 MV V2 max: 109.5 cm/sec MV P1/2t max nazario: 84.7 cm/sec Ao V2 max: 141.5 cm/sec MV max P.8 mmHg MV P1/2t: 41.2 msec Ao max P.0 mmHg MV V2 mean: 48.1 cm/sec MV dec slope: 601.8 cm/sec2 MV mean P.2 mmHg MVA(P1/2t): 5.3 cm2 MV V2 VTI: 27.2 cm LV V1 max: 101.9 cm/sec PA V2 max: 85.7 cm/sec LV V1 max P.2 mmHg Interpretation Summary Mildly dilated left ventricle. The estimated ejection fraction is 45-50 %. Stage 1 diastolic dysfunction. There is mild to moderate global hypokinesis of the left ventricle. Mild (1+) mitral valve insufficiency. Unable to estimate RV systolic pressure due to insufficient tricuspid regurgitant envelope. Trivial tricuspid valve insufficiency. There is no comparison study available. Ordering Physician: Zan Guzman Referring Physician: Collins Troncoso Performed By: Mekhi Nuñez RCS
--- NOTE | 2019-08-26 16:20 | PFTCOMP_ITS ---
COMPLETE PULMONARY FUNCTION TEST INTERPRETATION Brief HPI: Patient is a 64 year old female, currently under the care of Dr. Guzman, who presents to [facility] for complete pulmonary function tests secondary to diagnosis of dyspnea. Respiratory therapist reports good effort and reproducible results. Interpretation: Forced expiration spirometry shows no large airways obstructive ventilatory defect with an FEV1 of 87% predicted. There is no significant bronchodilator response by strict ATS criteria. Spirograms are of good quality and plateau normally. The respiratory flow volume loop shows a normal pattern. Lung volumes by body plethysmography show a normal total lung capacity at 3.62 L, 105% predicted. All other lung volumes are within normal limits. Diffusion capacity by carbon monoxide is normal at 81% predicted. The airway resistance is normal. No previous pulmonary function tests were available for review. Impression: Grossly normal pulmonary function testing with some mild stigmata of small airways disease. Bronchoprovocation study can be needed if asthma is a consideration.
== END ==
PROVIDERS: PCP Family Medicine; Referring Provider Internal Medicine Cardiovascular Disease; Visit Provider Internal Medicine Cardiovascular Disease
DX: R06.02 Shortness of breath (principal); Z98.890 Other specified postprocedural states
CPT/HCPCS: 93306; 94060; 94726; 94729

== ENCOUNTER → 2020-06-16 12:28 | Outpatient (CLI) | payer MEDICARE, MEDICAID, SELFPAY ==
[2020-04-29 09:46] VITALS: BMI 31.4
--- NOTE | 2020-06-16 12:40 | RAD_ITS ---
STUDY: X-RAY - LUMBAR SPINE REASON FOR EXAM: Female, 65 years old. Back pain TECHNIQUE: 3 view(s) of the lumbar spine were obtained. COMPARISON: None FINDINGS: Normal lumbar lordosis. There is no substantial scoliosis. There is a normal alignment of the vertebrae. There is multilevel endplate spondylosis of the lumbar vertebrae. There is multi-level degenerative disc disease with multi-level disc space narrowing. The soft tissue structures are unremarkable. RAD/Lumbar Spine 2 or 3 Views IMPRESSION: Degenerative changes. Electronically Signed: Kelly Womack MD at 22:55 EST Tel , Service support ,
== END ==
PROVIDERS: PCP Family Medicine; Referring Provider Anesthesiology Pain Medicine; Visit Provider Anesthesiology Pain Medicine
DX: M54.9 Dorsalgia, unspecified (principal)
CPT/HCPCS: 72100

== ENCOUNTER 2020-06-20 17:51 | Emergency (ER) | payer MEDICARE, MEDICAID, SELFPAY ==
[2020-04-29 09:46] VITALS: BMI 31.4
[2020-06-20 17:53] VITALS: BP 174/117; PULSE 101; RESP 17; TEMP 36.2; O2SAT 93; BMI 30.2
--- NOTE | 2020-06-20 18:11 | CT_ITS ---
STUDY: CT ABDOMEN AND PELVIS WITH CONTRAST REASON FOR EXAM: Female, 65 years old. CRAMPS AND DIARRHEA X 3 DAYS -- HX:HTN,HLD,APPENDECTOMY,HYSTERECTOMY,C-SECTIONS RADIATION DOSAGE (If Supplied By Facility): CTDIvol = ( 13.53 ) mGy, DLP = ( 790.72 ) mGycm TECHNIQUE: Transaxial images were obtained from the dome of the diaphragm to the symphysis pubis without oral contrast. IV 100mL Isovue-370 was administered. Sagittal and coronal images were reconstructed. Individualized dose optimization techniques were used for this CT. COMPARISON: CT of abdomen and pelvis dated January 10, 2019 FINDINGS: The visualized lung bases are unremarkable. The visualized portions of the heart are within normal limits. Normal liver. Normal gallbladder and extrahepatic biliary system. Normal spleen. Normal pancreas. Normal bilateral adrenal glands. Normal right kidney. There is mild cortical atrophy of the left kidney, consistent with chronic medical renal disease. Normal visualized stomach. Normal small intestine. Normal colon. There is non-visualization of the appendix, reported prior appendectomy. Subcentimeter central mesenteric root lymph nodes reidentified, which are nonpathologic. No free air or free fluid or bowel dilatation or evidence of obstruction. No inflammatory stranding or bowel wall thickening is seen. No diverticulosis. Normal abdominal aorta. Normal inferior vena cava. Normal retroperitoneum. Normal urinary bladder. There is absence of the uterus consistent with a prior hysterectomy. Normal abdominal wall. Normal osseous structures. CT/Abdomen/Pelvis W IV Cont ONLY IMPRESSION: 1. No demonstrated acute or significant process of the abdomen and pelvis. 2. No free air or free fluid or bowel dilatation or evidence of obstruction. No inflammatory stranding or bowel wall thickening is seen. No diverticulosis. Electronically Signed: Klever Patel MD at 20:36 EST , Service support ,
--- NOTE | 2020-06-20 18:11 | ED.VIS.GEN ---
History of Present Illness Chief Complaint: Diarrhea Informant: Patient Narrative: 65-year-old female presenting with abdominal cramping, abdominal pain, diarrhea x3 days. She also complains of a headache and body aches. She denies cough or cold. She denies shortness of breath. She does not believe she had a fever. No change in taste or smell. She denies urinary or vaginal complaints. - Past Medical History (1) Depression Status: Chronic Comment: Presented to [facility] ER 02/05/19 wih suicidal ideation: 7 years ago, daughter 3 years ago. (2) Essential hypertension Status: Chronic Past Medical History - Allergies and Home Meds Allergies/Adverse Reactions: Allergies aspirin Allergy (Severe, Verified 06/20/20 17:52) hives erythromycin base Adverse Reaction (Severe, Verified 06/20/20 17:52) Hives nalbuphine [From Nubain] Adverse Reaction (Intermediate, Verified 06/20/20 17:52) GI upset ketorolac [From Toradol] Adverse Reaction (Mild, Verified 06/20/20 17:52) Sweats carvedilol Adverse Reaction (Verified 06/20/20 17:52) Unknown Primary Care Physician: Sarabjit Troncoso MD [Primary Care Provider] - Prior records reviewed: Yes Past Medical History: - - Reviewed in problem list Surgical History: noncontributory Lives: [facility] Smoking Status: Never smoker Alcohol: None Drugs: None Review of Systems General: Reports: Chills, Malaise, Sweats Eyes: Denies: Visual changes - bilaterally, Diplopia ENT: Denies: Rhinorrhea, Sore throat Cardiovascular: Denies: Chest pain, Palpitations Gastrointestinal: Reports: Abdominal pain, Nausea, Diarrhea Genitourinary: Denies: Dysuria, Hematuria Musculoskeletal: Reports: Myalgias. Denies: Arthralgias, Neck pain Skin: Denies: Rash, Abscess Neurological: Reports: Headache. Denies: Parasthesia, Numbness Psych: Denies: Depression, Anxiety Physical Exam Vital Signs/Narrative: Vital Signs Temp Pulse Resp BP Pulse Ox 06/20/20 17:53 97.2 F L 101 H 17 174/117 H 93 Inital Vital Signs reviewed: Yes General: Obese, No Acute Distress Head: Normocephalic, Atraumatic Eyes: Perrl, EOMI. Negative for: Scleral icterus ENT: Moist mucous membranes, No rhinorrhea Cardiovascular: Regular rate, Regular rhythm Respiratory: No distress, CTA bilaterally Abdomen: Soft, Nondistended, Tender - Tenderness to palpation diffusely with greater tenderness in the right lower and right upper quadrants. Extremities: Nontender, No edema Skin: Normal color, No rash Neurological: Alert, Oriented x3 Psychological: Normal affect, Normal Mood Diagnostic/Tx/Re-eval Clinical Impression(s) from Imaging Studies Abdomen/Pelvis CT 06/20/20 18:11 IMPRESSION: 1. No demonstrated acute or significant process of the abdomen and pelvis. 2. No free air or free fluid or bowel dilatation or evidence of obstruction. No inflammatory stranding or bowel wall thickening is seen. No diverticulosis. Electronically Signed: Klever Patel MD at 20:36 EST , Service support , Laboratory Data 06/20/20 06/20/20 06/20/20 18:35 18:35 18:50 WBC 5.6 RBC 4.77 Hgb 14.9 Hct 43.6 MCV 91.4 MCH 31.2 MCHC 34.2 RDW Std Deviation 39.8 RDW Coeff of Albert 12.0 Plt Count 222 MPV 9.4 Immature Gran % (Auto) 0.400 Neut % (Auto) 50.2 Lymph % (Auto) 38.4 [place] % (Auto) 9.4 Eos % (Auto) 1.2 Baso % (Auto) 0.4 Absolute Neuts (auto) 2.8 Absolute Lymphs (auto) 2.16 Nucleated RBC % 0 Sodium 143 Potassium 3.4 L Chloride 110 H Carbon Dioxide 28.0 Anion Gap 5 BUN 15 Creatinine 1.13 H Estim Creat Clear Calc 48.43 Est GFR (MDRD) Af Amer 62 Est GFR (MDRD) Non-Af 51 L BUN/Creatinine Ratio 13.3 Glucose 114 H Calcium 9.3 Total Bilirubin 0.40 AST 16 ALT 22 Alkaline Phosphatase 98 Total Protein 7.5 Albumin 4.1 Globulin 3.4 Albumin/Globulin Ratio 1.2 Lipase 185 Urine Color Yellow Urine Clarity Clear Urine pH 5.0 Ur Specific Anna 1.020 Urine Protein 15 H Urine Glucose (UA) Normal Urine Ketones 5 H Urine Occult Blood 10 H Urine Nitrite Negative Urine Bilirubin Negative Urine Urobilinogen 1 H Ur Leukocyte Esterase 25 H Urine RBC 0 SEEN Urine WBC 0-5 SEEN Ur Squamous Epith Cells 0-5 SEEN Urine Bacteria 0 SEEN Urine Mucus RARE - Medical Decision Making Patient presents with body aches and diarrhea. She has no respiratory complaints however she does have a headache. She was given IV fluids, morphine, Zofran which improved her symptoms greatly. Her lab work is unremarkable and not consistent with Covid?19. CT abdomen pelvis is negative. Given the patient is having diarrhea I will give her a prescription for Imodium for home as she states she cannot take anything if not prescribed at her facility. Patient is amenable this plan she is discharged home in stable condition Impression: 1. Abdominal pain 2. Diarrhea 3. Myalgias ED Disposition - Plan for ED Patient: Disposition: Home or Assisted Living Instructions: ED Diarrhea, Unknown Cause Prescriptions: Loperamide [Imodium] 2 mg PO Q6H PRN PRN #30 cap PRN Reason: Diarrhea Transmission Status: Received by [facility] - [place] - [id number] Referrals: Sarabjit Troncoso MD [Primary Care Provider] -
[2020-06-20] MEDS: Ondansetron 4 MG/2 ML Vial IV (18:35)
[2020-06-20] MEDS: Morphine 4 MG/ML Syringe IV (18:35)
[2020-06-20] MEDS: 0.9% Normal Saline 1,000 ML 1000 ML IV (18:35)
[2020-06-20 18:47] LABS: Absolute Lymphocyte Count 2.16 X10^3/uL (0.83-4.51); Absolute Neutrophil Count 2.8 X10^3/uL (2.0-7.7); Basophil# 0.02 X10^3/uL; Basophil% 0.4 % (0-1); Eosinophil# 0.07 X10^3/uL; Eosinophils% 1.2 % (0-5); Hematocrit 43.6 % (37-47); Hemoglobin 14.9 g/dL (12.0-15.0); Lymphocyte # 2.16 X10^3/ul (4.0); Lymphocyte % 38.4 % (19-41); Mean Corp Hgb Conc 34.2 g/dL (32-36); Mean Corpuscular Hgb 31.2 pg (27.0-32.0); Mean Corpuscular Volume 91.4 fL (81-99); Mean Platelet Vol. 9.4 fl (6.2-12.0); Monocyte# 0.53 X10^3/uL; Monocyte% 9.4 % (0-10); NRBC Flagged by Analyzer 0 % (0-5); Neutrophil # 2.83 X10^3/uL (2.7-7.7); Neutrophil % 50.2 % (47-70); Platelet Count 222 K/mm3 (150-450); RBC Distribution Width SD 39.8 fl (35.1-43.9); Red Blood Count 4.77 M/mm3 (4.2-5.4); White Blood Count 5.6 K/mm3 (4.4-11.0)
[2020-06-20 18:59] LABS: Bacteria 0 SEEN /hpf (None Seen); Red Blood Cells-Urine 0 SEEN /hpf (0-5)
[2020-06-20 19:06] LABS: ALB/GLOB Ratio 1.2 RATIO (0.9-2.4); AST(SGOT) 16 U/L (15-37); Alanine Aminotransfer ALT/SGPT 22 U/L (13-56); Albumin, Serum 4.1 g/dL (3.2-5.0); Alkaline Phosphatase 98 U/L (45-117); Anion Gap 5 (5-15); BUN 15 mg/dL (7-18); BUN/Creat Ratio 13.3 RATIO (10-20); Calcium,Total 9.3 mg/dL (8.5-10.1); Chloride 110 mmol/L (98-107); Creatinine, Serum 1.13 mg/dL (0.55-1.02); EST Glomerular Filtration Rate 51 mL/min (>60); Est Glom Filt Rate - Afr Amer 62 mL/min (>60); Estimated Creatinine Clearance 48.43 ml/min; Globulin 3.4 g/dL (2.2-4.2); Glucose 114 mg/dL (74-106); Lipase 185 U/L (73-393); Potassium 3.4 mmol/L (3.5-5.1); Protein, Total 7.5 g/dL (6.4-8.2); Sodium Level 143 mmol/L (136-145)
[2020-06-20 19:11] LABS: Color, Urine Yellow (Yellow); Glucose, Dipstick Normal (Normal); Ketone-Dipstick 5 mg/dl (Negative); Leukocyte Esterase-Dipstick 25 /ul (Negative); Nitrite-Dipstick Negative (Negative); Occult Blood-Urine 10 /ul (Negative); Protein-Dipstick 15 mg/dl (Negative); Urine Bilirubin Dipstick Negative (Negative); Urine Clarity Clear (Clear); Urine Urobilinogen 1 mg/dl (Normal)
[2020-06-20 19:12] LABS: Mucous, Urine RARE /hpf (<or=2+); Squamous Epithelial Cells - UA 0-5 SEEN /hpf (5-10); White Blood Cells 0-5 SEEN /hpf (0-5)
[2020-06-20 20:59] VITALS: BP 124/99; PULSE 102; RESP 14; O2SAT 95
== END 2020-06-20 21:00 | disposition home or self-care (01) ==
PROVIDERS: Emergency Provider Student in an Organized Health Care Education/Training Program; PCP Family Medicine
DX: R10.9 Unspecified abdominal pain (principal); R19.7 Diarrhea, unspecified; M79.10 Myalgia, unspecified site; I10 Essential (primary) hypertension; F32.9 Major depressive disorder, single episode, unspecified
CPT/HCPCS: 74177; 80053; 81001; 83690; 85025; 96374; 96375; 99285; J7030; Q9967; A4216; J2405

== ENCOUNTER 2020-08-31 09:42 | Outpatient (RCR) | payer MEDICARE, SELFPAY ==
[2020-08-31] MEDS: COVID-19 VACC, MRNA(PFIZER)/PF 30 MCG/0.3 ML SYRINGE IM (17:29)
[2020-09-21] MEDS: COVID-19 VACC, MRNA(PFIZER)/PF 30 MCG/0.3 ML SYRINGE IM (16:34)
== END 2020-11-30 23:59 ==
LOC: IMMUN 09:42
PROVIDERS: PCP Family Medicine; Referring Provider Family Medicine; Visit Provider Family Medicine
DX: Z23 Encounter for immunization (principal)
CPT/HCPCS: 0001A; 0002A; 91300

== ENCOUNTER → 2020-08-31 12:48 | Outpatient (CLI) | payer MEDICARE, MEDICAID, SELFPAY ==
[2020-08-31 13:50] LABS: Amphetamine Urine VISTA NEGATIVE (<1000 ng/mL); Barbiturate Urine VISTA NEGATIVE (< 200 ng/mL); Benzodiazepine Urine VISTA NEGATIVE (< 200 ng/mL); Cocaine Urine VISTA NEGATIVE (< 300 ng/mL); Ecstacy Urine VISTA NEGATIVE (< 500 ng/mL); Methadone Urine VISTA NEGATIVE (< 300 ng/mL); PCP Urine VISTA NEGATIVE (< 25 ng/mL); THC Urine VISTA NEGATIVE (< 50 ng/mL); Vista UDS pH Range 5
== END ==
PROVIDERS: PCP Family Medicine; Referring Provider Anesthesiology Pain Medicine; Visit Provider Anesthesiology Pain Medicine
DX: F11.20 Opioid dependence, uncomplicated (principal)
CPT/HCPCS: 80307

== ENCOUNTER → 2020-10-28 12:08 | Outpatient (CLI) | payer MEDICARE, MEDICAID, SELFPAY ==
--- NOTE | 2020-10-28 12:12 | MRI_ITS ---
HISTORY: BACK PAIN, RT LEG PAIN EXAMINATION: MR Spine Lumbar W/O Contrast TECHNIQUE: Multiplanar and multisequence MR images of the lumbar spine. IV Contrast dosage and agent: None. COMPARISON: CT lumbar spine 06/20/20 FINDINGS: VERTEBRAE: No acute compression fracture. Increasing spondylosis at L3-4, currently 6 mm compared to prior 3 mm. Discogenic endplate changes at L3-4. No expansile or destructive lesion. CORD: Normal visualized portions of the spinal cord and cauda equina, with the tip of the conus medullaris at the L1 level. No intradural or intramedullary soft tissue mass or epidural fluid collection. SOFT TISSUES: Unremarkable. L1/L2: No disc bulge, central canal stenosis, or neural foraminal stenosis. L2/L3: No disc bulge, central canal stenosis, or neural foraminal stenosis. L3/L4: Moderate central and severe right foraminal stenosis due to the spondylolisthesis and pseudo-bulge with posterior element hypertrophy. L4/L5: Circumferential annular bulge produces moderate central and bilateral foraminal stenosis. L5/S1: Circumferential annular bulge with bilateral foraminal stenosis, left greater than right. MRI/Spine Lumbar (Routine) IMPRESSION: Worsening spondylolisthesis at L3-4 with moderate central and severe right foraminal stenosis. Central and bilateral foraminal stenoses at L4-5 and L5-S1 as above. at 1619 Reported and signed by: Srinivasan Shah MD Electronically Signed: Srinivasan Shha MD at 16:18 EDT Tel , Service support ,
== END ==
PROVIDERS: PCP Family Medicine; Referring Provider Anesthesiology Pain Medicine; Visit Provider Anesthesiology Pain Medicine
DX: M54.9 Dorsalgia, unspecified (principal); M79.604 Pain in right leg
CPT/HCPCS: 72148